=== PATIENT | male | born 1960 | race Caucasian/White ===

== ENCOUNTER 2017-06-24 06:41 | Day surgery (SDC) | payer OTHER ==
[2017-06-23 12:51] VITALS: BMI 22.3
[~2017-06-24] VITALS: Ht 177.8 cm; Wt 71.0 kg
[~2017-06-24 06:41] MED LIST: CEFAZOLIN 2 GM/50 ML (PMX) 50 ML IVPB ONE; LANS30CA47 PO; LEVO125T75 PO; RANI75TA13 PO; SOD CHLORIDE 0.9% 1,000 ML IV SCH
[2017-06-24] MEDS ORDERED: RANI150T5 PO (07:34)
[2017-06-24] MEDS ORDERED: LEVO88TA3 PO (07:34)
[2017-06-24 08:06] VITALS: Ht 177.8 cm; Wt 71.0 kg
[2017-06-24 08:09] VITALS: BP 136/76; PULSE 71; RESP 20
[2017-06-24] MEDS ORDERED: BUPIVACAINE 0.25% (MPF) 30 ML INJ ONE (08:19)
--- NOTE | 2017-06-24 08:50 | PN ---
Date/Time of Note Date/Time of Note DATE: 06/24/17 TIME: 08:49 Assessment/Plan VTE Prophylaxis VTE Prophylaxis Intervention: SCD's Lines/Catheters IV Catheter Type (from Nrsg): Saline Lock Subjective 24 Hr Interval Summary Free Text/Dictation Spoke with Magdi Soni, staff radiologist that states that there is right lung nodule on CXR that needs to be evaluated with a CT scan. Patient was told he should followup with his PCP for CT scan of chest and possible ct guided biopsy at the discretion of pcp. Exam/Review of Systems Vital Signs Vitals Vital Signs Date Time Temp Pulse Resp B/P Pulse Ox O2 Delivery O2 Flow Rate FiO2 06/24/17 08:09 98.5 71 20 136/76 99 Room Air Medications Medications Current Medications Sodium Chloride (NS) 1,000 ml @ 75 mls/hr [id number] IV ; Start 06/24/17 at 06:03 ; Stop 06/24/17 at 23:00 Charbel MERINO Jun 24, 2017 08:50
[2017-06-24] MEDS ORDERED: MIDAZOLAM 1 MG/ML 2 ML INJ ONE (09:01)
[2017-06-24] MEDS ORDERED: FENTAnyl 50 MCG/ML VIAL ONE ×2 (09:01→09:32)
[2017-06-24] MEDS ORDERED: LIDOCAINE 1% (STERILE-PAK) 30 ML INJ ONE (09:02)
[2017-06-24] MEDS ORDERED: BUPIVACAINE 0.5% (SDV) 30 ML INJ ONE (09:02)
[2017-06-24] MEDS ORDERED: KETOROLAC 30 MG INJ ONE (09:05)
[2017-06-24] MEDS ORDERED: CEFAZOLIN 1 GM INJ ONE (09:06)
--- NOTE | 2017-06-24 09:44 | OPR ---
Date/Time of Note Date/Time of Note DATE: 06/24/17 TIME: 09:41 Operative Report Procedure Date: Jun 24, 2017 Preoperative Diagnosis left leg mass Postoperative Diagnosis left leg mass Operation Performed 1. excision of left leg mass 5 cm mass 5 cm incision 2. localized adjacent tissue transfer with the use of skin flaps 10 sq cm defect 3. therapeutic injection of subcutaneous marcaine cpt code 69762 Surgeon: Charbel MERINO Anesthesia Type: MAC Estimated Blood Loss: minimal Specimens left leg mass Grafts/Implants: none Complications: no Indications This is a 57-year-old male with a left leg mass. He requires surgical excision. Risks alternatives benefits and percent were discussed the patient. Patient expresses understanding and consents to the operation. Procedure Description Patient is taken to the OR and prepped and draped in usual sterile fashion. Surgical timeout is performed. IV antibiotics given. Local anesthesia was therapeutically injected subcutaneously all around the mass. 15 blade is used to make an incision over the left leg mass in a transverse fashion. Dissection cautery was carried onto the mass and circumferentially excised. There is good hemostasis. Due to tissue defect localized adjacent tissue transfer with these of skin flaps were performed. Multilayer closure with interrupted 3-0 Vicryl and skin kana. Dry dressings were applied. Charbel MERINO Jun 24, 2017 09:44
[2017-06-24 09:46] VITALS: BP 133/67; PULSE 72; RESP 14
[2017-06-24 09:51] VITALS: BP 117/63; PULSE 66; RESP 14
[2017-06-24 09:56] VITALS: BP 121/66; PULSE 68; RESP 14
[2017-06-24] MEDS ORDERED: HYDROCODONE/APAP (5/325) TAB PO ONE (10:00)
[2017-06-24 10:01] VITALS: BP 114/57; PULSE 68; RESP 14
[2017-06-24 10:10] VITALS: BP 127/69; PULSE 68; RESP 16
--- NOTE | 2017-06-24 10:58 | RADRPT ---
PROCEDURE: XR Chest. CLINICAL INDICATION: PREOP TECHNIQUE: Single frontal view of the chest was obtained. COMPARISON: None. FINDINGS: The heart and mediastinum are within normal limits. The aortic arch is calcified. There is a 2.5 cm opacity in the right mid lung. There is mild pulmonary vascular congestion. There is no significant pleural effusion or pneumothorax. IMPRESSION: 2.5 cm opacity in the right mid lung is suspicious for a lesion. Malignancy cannot be excluded. A CT study of the chest is recommended for further evaluation. Mild pulmonary vascular congestion. Aortic atherosclerosis. These findings were discussed with Charbel Almeida over the phone on 06/24/2017 at 8:32 AM . RPTAT: EE Physician Henrry Date Time Electronically viewed and signed by Physician Henrry on 06/24/2017 08:32 /
--- NOTE | 2017-06-25 13:46 | RADRPT ---
Vent Rate: 81 bpm RR Interval: 0 msec NE Interval: 170 msec QRS Duration: 114 msec QT Interval: 376 msec QTC Interval: 436 msec P-R-T [place]: 59 - -34 - 48 degrees Normal sinus rhythm Left axis deviation Abnormal ECG Electronically Signed By: Richie Prieto [id number]
== END 2017-06-24 10:40 | disposition home or self-care (01) ==
LOC: SDS 06:41
PROVIDERS: ATTEND Surgery
DX: D17.24 Benign lipomatous neoplasm of skin and subcutaneous tissue of left leg (principal); E03.9 Hypothyroidism, unspecified
CPT/HCPCS: 14020; 71010; 88307; 93005; J0690; J1885; J2250; J3010

== ENCOUNTER 2017-11-26 15:40 | Emergency (ER) | END 2017-11-26 19:36 | disposition home or self-care (01) ==